=== PATIENT | male | born 1950 | race Caucasian/White ===

== ENCOUNTER 2016-08-05 20:04 | Emergency (ER) | payer OTHER ==
[~2016-08-05] VITALS: Ht 172.7 cm; Wt 92.1 kg
[~2016-08-05 20:04] MED LIST: ATRINH INH; CAR60 PO; ECO81 PO; FER300 PO; GLU500 PO; LOP50 PO; PRI20 PO; THERAGRAN-M1 TA4 PO; VITC PO; ZES10 PO; ZOC10 PO; ZOL100 PO; [UNRECOGNIZED DRUG - OTHER] PO
[2016-08-05 21:04] LABS: BASOPHIL % 0.7 % (0-2); PLATELET COUNT 276 x10^3mcL (130-400); RED CELL DISTRIBUTION WIDTH 12.9 % (11.5-14.5)
[2016-08-05 21:12] LABS: CARBON DIOXIDE 20.2 mmol/L (21-32); CREATININE SERUM 1.4 mg/dL (0.7-1.3); POTASSIUM SERUM 4.2 mmol/L (3.5-5.1)
[2016-08-05 21:18] LABS: BILIRUBIN TOTAL 0.4 mg/dL (0.20-1.00); TOTAL PROTEIN, SERUM 7.5 g/dL (6.4-8.2)
[2016-08-05 23:41] VITALS: BP 113/79
== END 2016-08-05 23:41 | disposition home or self-care (01) ==
LOC: ED 20:04
PROVIDERS: Emergency Medicine
DX: S93.401A Sprain of unspecified ligament of right ankle, initial encounter (principal); S83.91XA Sprain of unspecified site of right knee, initial encounter; R07.9 Chest pain, unspecified; J44.9 Chronic obstructive pulmonary disease, unspecified; E11.9 Type 2 diabetes mellitus without complications; W10.9XXA Fall (on) (from) unspecified stairs and steps, initial encounter; Y93.01 Activity, walking, marching and hiking; Y92.89 Other specified places as the place of occurrence of the external cause; Y99.8 Other external cause status
CPT/HCPCS: 82962; J1815; J1885; J7030